=== PATIENT | female | born 2000 | race Caucasian/White ===

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

== ENCOUNTER 2019-06-28 17:45 | Emergency (ER) | payer MEDICAID, OTHER ==
--- NOTE | 2019-06-28 19:11 | EDM.PDOC ---
ED HPI GENERAL MEDICAL PROBLEM - General Chief Complaint: Head Injury Stated Complaint: FALL YESTERDAY/NEED A DR NOTE Time Seen by Provider: 06/28/19 19:06 Source of Information: Reports: Patient History Limitations: Reports: No Limitations - History of Present Illness INITIAL COMMENTS - FREE TEXT/NARRATIVE: 18 year old female presents to the ED for evaluation of closed head injury and neck pain since she slipped and fell on the ice last pm.Feet went out from underneath her and she fell with direct blow to occpital head and neck. Injured Lt elbow and sacrum/coccyx. She states she did not get knocked out got up right away and her respiratory age her back to the car. Today she's had a very bad headache associated with nausea. Intermittent blurred vision and hard to focus on objects. No ringing in her ears. Feels off balance at times. 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 Therefore advised to come to the ED. She denies any possibility of . Onset: Sudden Onset Date: 06/27/19 Onset Time: 23:00 Duration: Hour(s):, Constant, Getting Worse Location: Reports: Head, Neck Quality: Reports: Ache, Throbbing, Other (Associated nausea and feeling of being off balance.) Severity: Moderate Improves with: Reports: Rest Worsens with: Reports: Other (Trying to focus on an object.), Movement Context: Reports: Trauma (Slipped and fell on the ice with direct blow to the back of her head and neck and sacrum. Minor contusion to the left elbow as well) . Denies: Activity, Exercise, Lifting, Sick Contact Associated Symptoms: Reports: Confusion, Headaches, Malaise, Nausea/Vomiting. Denies: Chest Pain, Cough, cough w sputum, Rash, Seizure (Nausea without vomiting), Shortness of Breath, Syncope Treatments MANAGER BUSINESS OPERATIONS: Reports: Acetaminophen Other Treatments MANAGER BUSINESS OPERATIONS: does't know dosage- "2 of the normal size pills" Head Pain Score (Numeric/FACES): 3 - Related Data Allergies Allergy/AdvReac Type Severity Reaction Status Date / Time No Known Allergies Allergy Verified 06/29/18 09:59 Home Meds: Home Meds . [No Known Home Meds] 10/05/18 [History] Past Medical History HEENT History: Reports: Allergic Rhinitis Respiratory History: Reports: Other (See Below) Other Respiratory History: sasonal allergies Musculoskeletal History: Reports: Other (See Below) (Right hip labrum tear) Other Musculoskeletal History: right hip issues-ligaments torn Neurological History: Reports: Migraines Dermatologic History: Reports: Eczema - Past Surgical History HEENT Surgical History: Reports: Oral Surgery, Tonsillectomy Other HEENT Surgeries/Procedures: Dental surgeries Social & Family History - Tobacco Use Years of Tobacco use: 2 - Caffeine Use Caffeine Use: Reports: Coffee - Recreational Drug Use Recreational Drug Use: No - Living Situation & Occupation Living situation: Reports: Single, Other (School dorms) Occupation: Student ([employer]) ED ROS GENERAL - Review of Systems Review Of Systems: See Below Constitutional: Reports: Malaise, Fatigue, Decreased Appetite. Denies: Fever, Chills HEENT: Reports: Vision Change. Denies: Glasses (Vision is blurred at times. Heart focus on objects at times.), Hearing Loss, Nosebleed Respiratory: Reports: No Symptoms Cardiovascular: Reports: No Symptoms Endocrine: Reports: No Symptoms GI/Abdominal: Reports: Nausea : Reports: No Symptoms Musculoskeletal: Reports: Neck Pain, Other (No pain in her left elbow over the olecranon process. Pain over the sacrum and coccyx as well where she fell.) Skin: Reports: Bruising (Left elbow) Neurological: Reports: Dizziness, Headache, Gait Disturbance. Denies: Numbness , Paresthesia, Pre-Existing Deficit, Seizure, Syncope, Tingling, Tremors, Trouble Speaking, Weakness, Change in Speech Psychiatric: Reports: No Symptoms. Denies: Agitation Hematologic/Lymphatic: Reports: No Symptoms Immunologic: Reports: No Symptoms ED EXAM, HEAD INJURY - Physical Exam Exam: See Below Exam Limited By: No Limitations General Appearance: Alert, WD/WN, No Apparent Distress, Other (Vital signs are all normal.) Head: Scalp Tenderness (Right occipital). No: Scalp Abrasions, Scalp Ecchymosis , Scalp Hematoma, Active Bleeding, Kwok's Sign, Flap, Facial Abrasions, Facial Ecchymosis, Facial Lacerations, Facial Swelling, Sinus Tenderness Nexus Criteria: Posterior, Midline Cervical Tenderness (Particularly over C6-C7 midlines spinous processes. Decreased range of motion.) Eyes: Bilateral Eye: Normal Inspection, PERRL Ears: Normal TMs Throat/Mouth: Normal Inspection, Normal Lips, Normal Oropharynx, Other (No injuries to her tongue or teeth.) Neck: Paraspinous Muscle Tender, Spinous Processes Tender (C6-C7), Stiff Neck, Tenderness, Tender Lateral (Tender right lateral neck from C4-C7.), Tender Midline Respiratory: No Respiratory Distress, Lungs Clear, Normal Breath Sounds, Chest Non-Tender Cardiovascular: Normal Peripheral Pulses, Regular Rate, Rhythm, No Edema, No Gallop, No Murmur, No Rub Extremities: Other (Tenderness over the left olecranon process of the elbow with no significant swelling. Tenderness over the mid and upper portions of the sacrum. 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 No pronator drift.). No: Abnormal Gait, Aphasia, EOM Palsy, Facial Droop, Sensory Deficit, Depressed Affect, Disoriented x 3 Skin: Normal Color, Warm/Dry - Maurisio Coma Score Best Eye Response ([place]): (4) Open Spontaneously Best Verbal Response ([place]): (5) Oriented Best Motor Response ([place]): (6) Obeys Commands [place] Total: 15 Course - Vital Signs Last Recorded V/S: Last Vital Signs Temp 36.4 C 06/28/19 17:53 Pulse 74 06/28/19 17:53 Resp 18 06/28/19 17:53 BP 109/76 06/28/19 17:53 Pulse Ox 99 06/28/19 17:53 - Radiology Interpretation Free Text/Narrative:: 18-year-old female presents to the ED after slipping and falling on the ice last night. She suffered a direct blow to the right occipital aspect of her skull with no loss of consciousness. She landed hard on her neck with pain in the spinous processes of C6 and C7. She has markedly diminished range of motion of her cervical spine on exam. She has nausea blurred vision, and feels off balance with walking. Clinically she appears to have suffered a concussion. Remainder of her neuro exam is normal. She contused her left elbow without any bony fractures clinically. She contused her mid and upper portions of the sacrum as well. Plan CT head CT cervical spine to be done. - Re-Assessments/Exams Free Text/Narrative Re-Assessment/Exam: 06/28/19 20:34 CT of the cervical neck bones reveals loss of normal lordotic curvature. There is straightening of the cervical spine. No fractures are appreciated. CT of the brain and head reveals ventricles along with the basal cisterns and sulci over the convexities to be within normal limits. There is perhaps very minimal petechial hemorrhage noted within the left cerebellar hemisphere. No other intracranial hemorrhage is seen. No midline shift or mass effect is seen. Bone window settings were reviewed which show no acute calvarial abnormalities are otherwise paranasal sinuses are clear. She'll be placed on strict concussion protocol. She is to avoid all activities that could potentiate another head injury in the next 3 weeks. She is now studying for final exams for collagen will be done the end of next week and then off her [place] break. Advised Tylenol and/or Motrin as needed for headache relief. Departure - Departure Time of Disposition: 20:10 Disposition: Home, Self-Care 01 Condition: Fair Clinical Impression: Cervical spine pain, Contusion of left elbow, initial encounter Closed head injury with concussion Qualifiers: Encounter type: initial encounter Loss of consciousness presence/duration: without LOC Qualified Code(s): S06.0X0A - Concussion without loss of consciousness, initial encounter Contusion of sacrum Qualifiers: Encounter type: initial encounter Qualified Code(s): S30.0XXA - Contusion of lower back and pelvis, initial encounter - Discharge Information *PRESCRIPTION DRUG MONITORING PROGRAM REVIEWED*: Not Applicable *COPY OF PRESCRIPTION DRUG MONITORING REPORT IN PATIENT ANNELIESE: Not Applicable Instructions: Head Injury, Adult, Concussion, Adult, Post-Concussion Syndrome, Tailbone Injury, [id number], Returning to Sports and Activities After a Concussion, Adult Referrals: Elba Ratliff PA-C [Primary Care Provider] - Forms: ED Department Discharge, ED Return to Work/School Form Additional Instructions: Evaluation the emergent today in regards to slipping and falling on the ice last evening with direct blow to the occipital aspect of your head injury to lower cervical neck bones. Contusion to the left elbow and contusion to the sacrum or tailbone area. No loss of consciousness. Associated headache and mild nausea today appreciated balance being off a little bit as well as intermittent blurred vision. CT scan of the neck reveals no broken bones. You have lost her normal curvature of the cervical spine indicating some degree of muscle spasm and this is appreciated on examination on the right side particularly. Ice pack to the area for one half hour out of every 4 hours for the first 2 days after injury and after that may apply heat to the area one half hour out of every 4 hours to relieve muscle spasm and pain. CT of the brain reveals no midline shift or mass effect identified. No skull fracture evident. Clinically you have suffered a concussion and therefore should be on concussion protocol for the next 2 weeks which means very limited activities in terms that of doing anything that gets her blood pressure up and particularly avoiding any activity that could cause a repeat head injury. Low-level activities for the next 2 weeks strongly advised. Minimizing activities that require a great deal of focus such as reading, computer work, computer games etc. should be limited to 15-20 minutes at a time. Expect gradual improvement in balance and vision over the next 7-10 days. Sepsis Event Note - Evaluation Sepsis Screening Result: No Definite Risk - Focused Exam Vital Signs: Vital Signs Temp Pulse Resp BP Pulse Ox 06/28/19 17:53 36.4 C 74 18 109/76 99 Date Exam was Performed: 06/28/19 Time Exam was Performed: 20:33
--- NOTE | 2019-06-28 20:01 | CT ---
Head CT Technique: Multiple axial sections through the brain were obtained. Intravenous contrast was not utilized. Comparison: No prior intracranial imaging. Findings: Ventricles along with basal cisterns and sulci over the convexities are within normal limits. Very minimal petechial hemorrhages are noted within the left cerebellar hemisphere. No other intracranial hemorrhage is seen. No midline shift or mass effect is seen. Bone window settings were reviewed which showed no acute calvarial abnormality. Visualized mastoid sinuses are clear. Visualized paranasal sinuses are clear. Impression: 1. Minimal petechial hemorrhages within the left cerebellar hemisphere. 2. No additional abnormality is appreciated on noncontrast head CT exam. Diagnostic code #3 This report was dictated in [place] Standard Time
--- NOTE | 2019-06-28 20:01 | CT ---
CT cervical spine Technique: Multiple axial sections were obtained from above C1 inferiorly to the bottom of T2. Reconstructed sagittal and coronal images were reviewed. Comparison: No prior cervical spine imaging. Findings: Vertebral body heights and disc spaces are maintained. Vertebral bodies and posterior arches are intact. No fracture is seen. No abnormal subluxation is seen on the reconstructed sagittal images. No bony central or bony neural foraminal stenosis is seen. Impression: 1. Nothing acute is appreciated on CT study of the cervical spine. Diagnostic code #1
== END 2019-06-28 20:31 | disposition home or self-care (01) ==
LOC: JD.ED 17:45
DX: S06.0X0A Concussion without loss of consciousness, initial encounter (principal); S50.02XA Contusion of left elbow, initial encounter; S30.0XXA Contusion of lower back and pelvis, initial encounter; M54.2 Cervicalgia; W00.0XXA Fall on same level due to ice and snow, initial encounter
CPT/HCPCS: 70450; 70450-26; 72125; 72125-26; 99284-25

== ENCOUNTER 2020-09-09 00:34 | Emergency (ER) | payer MEDICAID ==
[2020-09-09] MEDS ORDERED: Sodium Chloride 0.9% 1,000 ML IV STA (01:08)
[2020-09-09] MEDS ORDERED: HYDROmorphone 0.5 MG/0.5 ML Syringe IVPUSH ONE (01:08)
[2020-09-09] MEDS ORDERED: Ondansetron 4 MG/2 ML SDV IVPUSH ONE (01:08)
[2020-09-09] MEDS ORDERED: Sodium Chloride 0.9% 10 ML Syringe FLUSH PRN (01:08)
--- NOTE | 2020-09-09 02:05 | EDM.PDOC ---
ED HPI GENERAL MEDICAL PROBLEM - General Chief Complaint: Gastrointestinal Problem Stated Complaint: VOMITING Time Seen by Provider: 09/09/20 00:45 Source of Information: Reports: Patient History Limitations: Reports: No Limitations - History of Present Illness INITIAL COMMENTS - FREE TEXT/NARRATIVE: The patient presents with nausea, vomiting and abdominal pain. She said this all started after she ate some [employer] barbecue. She has a history of bad reflux and at first that is what she thought this was but she has vomited multiple times. She has no fever, chills, chest pain or shortness of breath. She does have a slight cough but she says that is her allergies. She still has her appendix and gallbladder. She has no dysuria. Onset: Gradual Duration: Hour(s): Location: Reports: Abdomen Quality: Reports: Ache Severity: Moderate Improves with: Reports: None Worsens with: Reports: None Associated Symptoms: Reports: Nausea/Vomiting. Denies: Chest Pain, Cough, Fever/Chills, Headaches, Shortness of Breath Abdomen Pain Score (Numeric/FACES): 7 - Related Data Allergies Allergy/AdvReac Type Severity Reaction Status Date / Time No Known Allergies Allergy Verified 09/09/20 00:55 Home Meds: Home Meds . [No Known Home Meds] 10/05/18 [History] Past Medical History HEENT History: Reports: Allergic Rhinitis Respiratory History: Reports: Other (See Below) Other Respiratory History: sasonal allergies Musculoskeletal History: Reports: Other (See Below) Other Musculoskeletal History: right hip issues-ligaments torn Neurological History: Reports: Migraines Dermatologic History: Reports: Eczema - Past Surgical History HEENT Surgical History: Reports: Oral Surgery, Tonsillectomy Other HEENT Surgeries/Procedures: Dental surgeries Social & Family History - Tobacco Use Tobacco Use Status *Q: Never Tobacco User - Caffeine Use Caffeine Use: Reports: Coffee - Living Situation & Occupation Living situation: Reports: Single, Other (School dorms) Occupation: Student ([employer]) ED ROS GENERAL - Review of Systems Review Of Systems: See Below Constitutional: Reports: No Symptoms HEENT: Reports: No Symptoms Respiratory: Reports: No Symptoms Cardiovascular: Reports: No Symptoms Endocrine: Reports: No Symptoms GI/Abdominal: Reports: Abdominal Pain, Nausea, Vomiting. Denies: Diarrhea : Reports: No Symptoms Musculoskeletal: Reports: No Symptoms Skin: Reports: No Symptoms Neurological: Reports: No Symptoms ED EXAM, GI/ABD - Physical Exam Exam: See Below Exam Limited By: No Limitations General Appearance: Alert, No Apparent Distress Ears: Normal External Exam Nose: Normal Inspection Head: Atraumatic, Normocephalic Neck: Normal Inspection Respiratory/Chest: No Respiratory Distress, Lungs Clear, Normal Breath Sounds Cardiovascular: Regular Rate, Rhythm, No Edema, No Murmur GI/Abdominal Exam: Soft, Non-Tender, No Organomegaly, No Mass Back Exam: Normal Inspection Extremities: Normal Inspection Course - Vital Signs Last Recorded V/S: Last Vital Signs Temp 97.9 F 09/09/20 00:52 Pulse 71 09/09/20 00:52 Resp 16 09/09/20 00:52 BP 108/73 09/09/20 00:52 Pulse Ox 97 09/09/20 00:52 - Orders/Labs/Meds Orders: Active Orders 24 hr Category Date Time Status Peripheral IV Care [RC] . DIRECTED Care 09/09/20 01:08 Active UA W/MICROSCOPIC [URIN] Stat Lab 09/09/20 02:35 Results Sodium Chloride 0.9% [Saline Flush] Med 09/09/20 01:08 Active 10 ml FLUSH ASDIRECTED PRN ED Antiemetic Medication Reflex [OM.PC] Stat Oth 09/09/20 01:08 Ordered Peripheral IV Insertion Adult [OM.PC] Stat Oth 09/09/20 01:08 Ordered Medication Orders Sodium Chloride (Saline Flush) 10 ml FLUSH ASDIRECTED PRN PRN Reason: Keep Vein Open Last Admin: 09/09/20 01:19 Dose: 10 ml Documented by: PHYLICIA Labs: Laboratory Tests 09/09/20 09/09/20 09/09/20 Range/Units 01:05 01:05 01:05 WBC 11.44 H (3.98-10.04) K/mm3 RBC 5.02 (3.98-5.22) M/mm3 Hgb 14.5 (11.2-15.7) gm/dl Hct 42.1 (34.1-44.9) % MCV 83.9 (79.4-94.8) fl MCH 28.9 (25.6-32.2) pg MCHC 34.4 (32.2-35.5) g/dl RDW Std Deviation 38.2 (36.4-46.3) fL Plt Count 270 (182-369) K/mm3 MPV 9.9 (9.4-12.3) fl Neut % (Auto) 83.8 H (34.0-71.1) % Lymph % (Auto) 9.9 L (19.3-51.7) % [place] % (Auto) 5.2 (4.7-12.5) % Eos % (Auto) 0.8 (0.7-5.8) Baso % (Auto) 0.1 (0.1-1.2) % Neut # (Auto) 9.59 H (1.56-6.13) K/mm3 Lymph # (Auto) 1.13 L (1.18-3.74) K/mm3 [place] # (Auto) 0.60 H (0.24-0.36) K/mm3 Eos # (Auto) 0.09 (0.04-0.36) K/mm3 Baso # (Auto) 0.01 (0.01-0.08) K/mm3 Manual Slide Review Abnormal smear Sodium 144 (136-145) mEq/L Potassium 3.8 (3.5-5.1) mEq/L Chloride 107 (98-107) mEq/L Carbon Dioxide 26 (21-32) mEq/L Anion Gap 14.8 (5-15) BUN 15 (7-18) mg/dL Creatinine 1.0 (0.55-1.02) mg/dL Est Cr Clr Drug Dosing 90.53 mL/min Estimated GFR (MDRD) > 60 (>60) mL/min BUN/Creatinine Ratio 15.0 (14-18) Glucose 105 (74-106) mg/dL Calcium 9.0 (8.5-10.1) mg/dL Total Bilirubin 0.6 (0.2-1.0) mg/dL AST 23 (15-37) U/L ALT 20 (14-59) U/L Alkaline Phosphatase 69 (46-116) U/L Total Protein 7.4 (6.4-8.2) g/dl Albumin 4.1 (3.4-5.0) g/dl Globulin 3.3 gm/dL Albumin/Globulin Ratio 1.2 (1-2) Lipase 89 (73-393) U/L HCG, Qual Negative (NEGATIVE) Urine Color (Yellow) Urine Appearance (Clear) Urine pH (5.0-8.0) Ur Specific [place] (1.005-1.030) Urine Protein (Negative) Urine Glucose (UA) (Negative) Urine Ketones (Negative) Urine Occult Blood (Negative) Urine Nitrite (Negative) Urine Bilirubin (Negative) Urine Urobilinogen (0.2-1.0) Ur Leukocyte Esterase (Negative) 09/09/20 Range/Units 02:35 WBC (3.98-10.04) K/mm3 RBC (3.98-5.22) M/mm3 Hgb (11.2-15.7) gm/dl Hct (34.1-44.9) % MCV (79.4-94.8) fl MCH (25.6-32.2) pg MCHC (32.2-35.5) g/dl RDW Std Deviation (36.4-46.3) fL Plt Count (182-369) K/mm3 MPV (9.4-12.3) fl Neut % (Auto) (34.0-71.1) % Lymph % (Auto) (19.3-51.7) % [place] % (Auto) (4.7-12.5) % Eos % (Auto) (0.7-5.8) Baso % (Auto) (0.1-1.2) % Neut # (Auto) (1.56-6.13) K/mm3 Lymph # (Auto) (1.18-3.74) K/mm3 [place] # (Auto) (0.24-0.36) K/mm3 Eos # (Auto) (0.04-0.36) K/mm3 Baso # (Auto) (0.01-0.08) K/mm3 Manual Slide Review Sodium (136-145) mEq/L Potassium (3.5-5.1) mEq/L Chloride (98-107) mEq/L Carbon Dioxide (21-32) mEq/L Anion Gap (5-15) BUN (7-18) mg/dL Creatinine (0.55-1.02) mg/dL Est Cr Clr Drug Dosing mL/min Estimated GFR (MDRD) (>60) mL/min BUN/Creatinine Ratio (14-18) Glucose (74-106) mg/dL Calcium (8.5-10.1) mg/dL Total Bilirubin (0.2-1.0) mg/dL AST (15-37) U/L ALT (14-59) U/L Alkaline Phosphatase (46-116) U/L Total Protein (6.4-8.2) g/dl Albumin (3.4-5.0) g/dl Globulin gm/dL Albumin/Globulin Ratio (1-2) Lipase (73-393) U/L HCG, Qual (NEGATIVE) Urine Color Yellow (Yellow) Urine Appearance Clear (Clear) Urine pH 6.0 (5.0-8.0) Ur Specific [place] > or = 1.030 (1.005-1.030) Urine Protein Negative (Negative) Urine Glucose (UA) Negative (Negative) Urine Ketones 2+ H (Negative) Urine Occult Blood Negative (Negative) Urine Nitrite Negative (Negative) Urine Bilirubin Negative (Negative) Urine Urobilinogen 0.2 (0.2-1.0) Ur Leukocyte Esterase Negative (Negative) Meds: Medications Generic Name Dose Route Start Last Admin Trade Name Frekristian PRN Reason Stop Dose Admin Sodium Chloride 10 ml 09/09/20 01:08 09/09/20 01:19 Saline Flush FLUSH 10 ml ASDIRECTED PRN Administration Keep Vein Open Discontinued Medications Generic Name Dose Route Start Last Admin Trade Name Frekristian PRN Reason Stop Dose Admin Hydromorphone HCl 0.5 mg 09/09/20 01:08 09/09/20 01:18 Dilaudid IVPUSH 09/09/20 01:09 0.5 mg ONETIME ONE Administration Sodium Chloride 1,000 mls @ 1,000 mls/hr 09/09/20 01:08 09/09/20 01:17 Normal Saline IV 09/09/20 02:07 1,000 mls/hr .BOLUS STA Administration Ondansetron HCl 4 mg 09/09/20 01:08 09/09/20 01:17 Zofran IVPUSH 09/09/20 01:09 4 mg ONETIME ONE Administration - Re-Assessments/Exams Free Text/Narrative Re-Assessment/Exam: 09/09/20 02:05 I ordered an IV NS 1L bolus, zofran 4mg IV, labs and UA. 09/09/20 02:42 Her WBC was slightly elevated at 11.44. Her CMP was negative. Her lipase was normal. Her HCG was negative. She feels better and can give us a UA now. 09/09/20 02:48 Her UA looks good. I will discharge her home on zofran. Departure - Departure Time of Disposition: 02:50 Disposition: Home, Self-Care 01 Condition: Good Clinical Impression: Abdominal pain, Vomiting - Discharge Information *PRESCRIPTION DRUG MONITORING PROGRAM REVIEWED*: Not Applicable *COPY OF PRESCRIPTION DRUG MONITORING REPORT IN PATIENT ANNELIESE: Not Applicable Referrals: Elba Ratliff PA-C [Primary Care Provider] - 3 Days Forms: ED Department Discharge Additional Instructions: Drink plenty of fluids. Take the zofran every 6 hours as needed for nausea and vomiting. Follow up with your doctor in a few days. Please return if you are worse. Sepsis Event Note (ED) - Evaluation Sepsis Screening Result: No Definite Risk - Focused Exam Vital Signs: Vital Signs Temp Pulse Resp BP Pulse Ox 09/09/20 00:52 97.9 F 71 16 108/73 97 - My Orders Last 24 Hours: My Active Orders 09/09/20 01:08 Peripheral IV Care [RC] . DIRECTED Sodium Chloride 0.9% [Saline Flush] 10 ml FLUSH ASDIRECTED PRN ED Antiemetic Medication Reflex [OM.PC] Stat Peripheral IV Insertion Adult [OM.PC] Stat 09/09/20 02:35 UA W/MICROSCOPIC [URIN] Stat - Assessment/Plan Last 24 Hours: My Active Orders 09/09/20 01:08 Peripheral IV Care [RC] . DIRECTED Sodium Chloride 0.9% [Saline Flush] 10 ml FLUSH ASDIRECTED PRN ED Antiemetic Medication Reflex [OM.PC] Stat Peripheral IV Insertion Adult [OM.PC] Stat 09/09/20 02:35 UA W/MICROSCOPIC [URIN] Stat
== END 2020-09-09 03:01 | disposition home or self-care (01) ==
LOC: JD.ED 00:34
DX: R11.2 Nausea with vomiting, unspecified (principal); R10.9 Unspecified abdominal pain; D72.829 Elevated white blood cell count, unspecified
CPT/HCPCS: 36415; 80053; 81001; 83690; 84703; 85025; 96374; 96375; 99284; J1170; J2405; J7030